=== PATIENT | male | born 1965 | race Caucasian/White ===

== ENCOUNTER 2024-12-13 04:59 | Observation (INO) ==
--- NOTE | 2024-11-17 12:14 | PAT Medication Instructions ---
Medication Instructions Date of Service November 17, 2024 Home Medications atorvastatin 20 mg tablet 20 mg PO QAM meloxicam 15 mg tablet 15 mg PO QAM ASK your surgeon for instructions meloxicam 15 mg tablet 15 mg PO QAM Take morning of surgery With a small sip of water, OTHERWISE NOTHING TO EAT OR DRINK AFTER MIDNIGHT: atorvastatin 20 mg tablet 20 mg PO QAM Other Notes If you have any questions please call us at [phone] or [phone] or [phone] or [phone]
--- NOTE | 2024-11-23 09:51 | Anesthesiology Consultation ---
Date of Service November 23, 2024 Assessment & Plan (1) Encounter for pre-operative examination: Plan Outpatient joint assessment: Patient is currently scheduled for inpatient pathway. If re-evaluated and patient/surgeon requests outpatient pathway, patient is acceptable candidate for outpatient joint program from anesthesia standpoint pending surgeon's office assessment of pt motivation/support/completion of same day joint program preop requirements. Chart Review Chart Review: Acceptable Risk for Surgery and Patient seen in Pre Admission Testing Teaching & Discussion Pre-Anesthesia Teaching/Discussion Notes: Instructed NPO after midnight before surgery, except medications with 15 cc of water. Medication instructions provided according to the PAT guidelines. History Surgery Operation Date: 12/13/24 07:00 Proposed Procedures p Right Total Hip Arthroplasty Ra - Jasiel Pelayo DO Height/Weight Height: 6 ft 1 in Weight: 106.4 kg Allergies Allergy/AdvReac Type Severity Reaction Status Date / Time No Known Allergies Allergy Verified 11/09/24 14:01 Medications Home Medications Medication Instructions Recorded Confirmed Last Taken atorvastatin 20 mg tablet 20 mg PO QAM 09/01/24 11/09/24 Unknown meloxicam 15 mg tablet 15 mg PO QAM 11/09/24 11/09/24 Unknown Past Medical History Medical History Hyperlipemia Patient denies h/o stroke, seizures, heart attack, heart failure, DM, HTN, blood clots/DVTs or blood transfusions. Exercise / Class Metabolic Activity II 4-5 Yardwork/Stairs/Walk up hill (denies chest discomfort or shortness of breath walking up one flight of stairs) Past Surgical History Surgical History History of total left hip replacement 2022 Hx of arthroscopy of left knee Hx of arthroscopy of right knee Hx of arthroscopy of shoulder rt/lt rotator cuff tear repair Hx of colonoscopy Past Anesthesia History No Hx of Anesthesia Complications and No Family Hx of Anesthesia Complications History of PONV No Hx of PONV and No Hx of Motion Sickness Social History Smoking Status: Never smoker Do You Dip or Chew Tobacco: Yes (occasionally) Hx Alcohol Use: Yes Alcohol type: beer, wine and hard liquor alcohol intake frequency: a few times a month Hx Substance Use: No substance use type: does not use Review of Systems Snoring, denies witnessed apneas. Patient denies chest pain, shortness of breath, dyspnea on exertion, reflux, fever, chills, cough, wheezing, or palpitations. Physical Exam Vital Signs Vitals BP 152/93 P 55 TEMP 97.9 SP02 94% on RA RESP 19 Physical Patient resting comfortably in chair in no acute distress, alert and oriented, responding appropriately throughout visit Full cervical extension range of motion without pain TMD < 3 finger breadths Mallampati Score 3 Dentition: several caps/crowns, implants and bridges, denies chipped or loose teeth Lungs: normal respiratory effort. Good air movement, clear throughout to auscultation, no adventitious breath sounds Cardiac: regular rate and rhythm, no murmurs noted Carotid arteries: negative bruit bilat Lab Results Anesthesia Preop Results Results Anesthesia Widget: WBC 6.38 K/ul (4.8-10.8) 11/23/24 Hgb 14.5 g/dl (14.0-18.0) 11/23/24 Hct 40.4 % (42.0-52.0) L 11/23/24 Plt 176 K/uL (130-400) 11/23/24 Na 138 mmol/L (136-145) 11/23/24 K 4.1 mmol/L (3.5-5.1) 11/23/24 Cl 107 mmol/L (98-107) 11/23/24 CO2 22 mmol/L (21-32) 11/23/24 BUN 20 mg/dl (6-23) 11/23/24 Creat 1.12 mg/dl (0.6-1.4) 11/23/24 Glucose Level 101 mg/dl (70-99(Fasting)) H 11/23/24 PT 10.7 Seconds (9.0-12.0) 11/23/24 PTT 27 Seconds (21-31) 11/23/24 INR 1.0 (0.9-1.1) 11/23/24 Blood Type O Positive 11/23/24 Antibody Screen NEGATIVE 11/23/24 Testing Electrocardiogram Date: 11/23/24 Sinus bradycardia, rate [address] abnormality Chest X-Ray Date: 11/23/24 No acute findings.
[2024-12-13] MEDS: GABAPENTIN 300 MG CAP PO SCH (05:42)
[2024-12-13] MEDS: LR 60ML/HR IV SCH (05:42)
[2024-12-13] MEDS: ACETAMINOPHEN 500 MG TAB PO SCH ×2 (05:42→14:45)
[2024-12-13] MEDS: FAMOTIDINE 20 MG TAB PO SCH (05:42)
[2024-12-13] MEDS: LR 500ML BOLUS, THEN 15ML/HR IV SCH (05:51)
[2024-12-13] MEDS: dexAMETHasone**PF** 10 MG/ML VIAL IV SCH (05:56)
[2024-12-13] MEDS ORDERED: BUPIVACAINE 0.5 % 5 MG/1 ML PF 10ML VIAL ONE (06:22)
[2024-12-13] MEDS ORDERED: ONDANSETRON INJ 2 MG/ML 2 ML VIAL ONE (06:28)
[2024-12-13] MEDS ORDERED: LIDOCAINE 2% 2 ML VIAL/AMP(20MG/ML) INFIL ONE (06:28)
[2024-12-13] MEDS ORDERED: fentaNYL citrate PF 100 MCG/2 ML VIAL ONE (06:28)
[2024-12-13] MEDS ORDERED: MIDAZOLAM HCL 1 MG/ML 2ML VIAL ONE ×2 (06:28→06:58)
[2024-12-13] MEDS ORDERED: GLYCOPYRROLATE 0.2 MG/ML VIAL ONE (06:28)
[2024-12-13] MEDS ORDERED: PROPOFOL IV EMULSION 10 MG/ML 20 ML VIAL IV ONE ×2 (06:28→06:31)
[2024-12-13] MEDS ORDERED: KETAMINE HCL 10MG/ML SYR ONE (06:28)
--- NOTE | 2024-12-13 06:34 | History & Physical Bridge Note ---
Date of Service December 13, 2024 History & Physical Bridge Note I have examined the patient, reviewed the History & Physical and in the interval since the performance of the History & Physical I have noted the following changes of clinical significance: no changes noted
[2024-12-13] MEDS: TRANEXAMIC ACID 1,000 MG **IV Pre-op IV SCH (06:46)
[2024-12-13] MEDS ORDERED: HYDROmorphone INJ 1 MG/ML SYRINGE IV PRN (06:52)
[2024-12-13] MEDS ORDERED: ePHEDrine sulfate 50 MG/ML AMP IV PRN (06:52)
[2024-12-13] MEDS ORDERED: ATROPINE SULFATE 0.1 MG/ML 10ML SYR IV PRN (06:52)
[2024-12-13] MEDS ORDERED: ONDANSETRON INJ 2 MG/ML 2 ML VIAL IV PRN ×2 (06:52→10:53)
[2024-12-13] MEDS: ceFAZolin 2000MG 2,000 MG/15 ML SYR IV SCH (07:00)
[2024-12-13] MEDS ORDERED: ePHEDrine sulfate 50 MG/5 ML SYR ONE (07:12)
[2024-12-13] MEDS: ORTHO JOINT ANESTHETIC ONE (07:26)
[2024-12-13] MEDS ORDERED: PHENYLEPHRINE 100MCG/ML 5ML SYR ONE (07:46)
[2024-12-13] MEDS: TRANEXAMIC ACID 1,000 MG **IV Intra-op IV SCH (08:05)
[2024-12-13] MEDS: ROPIV 0.5% 246mg, Ketorolac 30mg, EPINEPHrine 0.5mg in NSS INFIL SCH (08:25)
--- NOTE | 2024-12-13 08:35 | Fluoroscopy Report ---
FL hip RT 1V CLINICAL HISTORY: RIGHT ANTERIOR HIP COMPARISON STUDY: Right hip radiographs September 01, 2024. FLUOROSCOPY TIME: 10 seconds. Ka,r: 1.7587 mGy FLUOROSCOPIC IMAGES: 1 FINDINGS: Fluoroscopy was provided during anterior total right hip arthroplasty. Hardware is intact. There are no fractures. No unexpected radiopaque foreign bodies are present. There is an acetabular s crew. IMPRESSION: Fluoroscopy provided during anterior total right hip arthroplasty. ACT 112: Negative or not required by law. Electronically signed by: Alexx Wayne M.D. 12/13/2024 8:32 AM
--- NOTE | 2024-12-13 08:36 | Operative Report ---
PG Post Operative Report Pre & Post Diagnosis Operation Date: 12/13/24 07:00 Pre-Op Diagnosis: Osteoarthritis Hip Right Post-Op Diagnosis: Osteoarthritis Hip Right I identified the patient and participated in the time-out.: Yes Procedure Operation Date: 12/13/24 07:00 Actual Procedures p Right Anterior Total Hip Arthroplasty(Right) - Jasiel Pelayo DO Surgeon Jasiel Pelayo DO [employer] Manager Juan F Chung PA-C Estimated Blood Loss 250 Findings Consistent with Post-Op Diagnosis Specimens Right femoral head Description of Procedure Implants used I used a ZimmerBiomet total hip arthroplasty system with a size 4 high offset Avenir Complete stem, a 52 mm G7 cup with a 25mm screw, an E1 polyethylene liner, a 36 mm ceramic head with a 0 neck. Kahlil arrived at the hospital for the above procedure. He was seen in the preoperative holding area and the operative extremity was identified and signed. He was given a spinal anesthetic, a preoperative antibiotic, and TXA. He was then taken back to the operating room and laid on the table in the supine position. He was given basic sedation. The operative leg was secured to a Puristst leg positioner. The hip was then prepped and draped in sterile fashion. A timeout was done and the patient and the operative extremity was properly identified. An anterior approach was used. Dissection was taken down through the fascia and the tensor muscle belly was retracted laterally and the rectus was retracted medially. The circumflex vessels were identified and ligated. The capsule was then incised and tagged for later repair. The femoral neck was then cut and the femoral head was removed. The acetabulum was exposed. Time was spent doing a complete circumferential labral release. Sequential reaming of the acetabulum up to a size 51 reamer was done. Final reamings were done under fluoroscopy to ensure appropriate version. A Biomet 52 mm G7 cup was then impacted into place. A single 25 mm screw was placed. The E1 polyethylene liner was then snapped into place. Surrounding soft tissues were then injected with 100 cc of an orthopedic pain control cocktail. The proximal femur was then exposed. Sequential broaching up to a size 4 broach was done. Off that broach a size 36 head with a 0 neck was trialed. The hip was reduced and fluoroscopic images showed anatomic alignment of the implants in acceptable length. The broach was removed. The final size 4 high offset Avenir Complete stem was then impacted into place. A ceramic 36 mm head with a 0 neck was then impacted onto the stem and the hip was reduced. Final fluoroscopic images showed anatomic alignment of the hip. The capsule was then closed with #1 Vicryl suture. A dilute betadyne lavage was then done for 3 minutes. The joint was then irrigated with normal saline solution. The fascia was closed with #1 PDS suture. Skin was closed with 2-0 Vicryl, sneha, and a Silverlon dress ing. He was then transferred to a hospital bed and taken to the post anesthesia care unit in stable condition. He tolerated the procedure well. Juan F Chung PA-C, was present for the entire procedure. He was critical for patient positioning, prepping, draping, retraction exposure, wound closure and application of sterile dressing. I attest to the content of the Intraoperative Record and any orders documented therein. Any exceptions are noted below.
--- NOTE | 2024-12-13 09:16 | Anesthesiology Progress Note ---
Date of Service December 13, 2024 Anesthesia Post Procedure Vital Signs Vital Signs: Temp Pulse Pulse Resp BP Pulse Ox O2 Del Method 12/13/24 09:05 81 20 120/76 95 Nasal Cannula 12/13/24 08:55 77 13 139/84 94 Nasal Cannula 12/13/24 08:45 85 14 135/87 93 Oxymask 12/13/24 08:36 36.7 C 93 H 12 118/87 94 Oxymask 12/13/24 05:33 36.6 C 55 L 20 156/97 H 96 Room Air O2 Flow Rate 12/13/24 09:05 4 12/13/24 08:55 4 12/13/24 08:45 4 12/13/24 08:36 4 12/13/24 05:33 Pain Intensity Right Hip: Pain Intensity: 3 Transfer of Care Handoff Completed per policy Notes Mental Status: alert / awake / arousable Patient Amnestic to Procedure: Yes Nausea / Vomiting: adequately controlled Pain: adequately controlled Airway Patency, RR, SpO2: stable & adequate BP & HR: stable & adequate Hydration State: stable & adequate Neuraxial Anesthesia: was administered and sensory block is resolving Anesthetic Complications: no major complications apparent and Pt Satisfied with anesthetic care
--- NOTE | 2024-12-13 09:28 | XRay Report ---
XR hip 1V RT w pelvis CLINICAL HISTORY: IN PACU - Post Surgical COMPARISON: 09/01/2024 FINDINGS: AP pelvis and lateral lateral view of the right hip demonstrate a total hip arthroplasty h as been performed with satisfactory positioning and alignment of the prosthetic components. Postsurgi james changes are noted in the soft tissues. IMPRESSION: Satisfactory positioning and alignment of a right hip arthroplasty. ACT 112: Negative or not required by law. Electronically signed by: Fatemeh Trinidad M.D. 12/13/2024 9:27 AM
[2024-12-13] MEDS: fentaNYL citrate PF 100 MCG/2 ML VIAL IV PRN (09:48)
[2024-12-13] MEDS ORDERED: bisacodyL 10 MG SUPP PR PRN (10:53)
[2024-12-13] MEDS ORDERED: MAGNESIUM HYDROXIDE SUSP 30 ML UDC PO PRN (10:53)
[2024-12-13] MEDS ORDERED: HYDROmorphone INJ 0.5 MG/0.5 ML SYR IV PRN (10:53)
[2024-12-13] MEDS ORDERED: NALOXONE HCL 0.4 MG/1 ML VIAL/CARP IV PRN (10:53)
[2024-12-13] MEDS ORDERED: METOCLOPRAMIDE HCL INJ 5 MG/ML 2 ML VIAL IV PRN (10:53)
--- NOTE | 2024-12-13 11:41 | Anesthesia Procedure Note ---
Anesthesia Procedure Note Neuraxial Placement Note Date of procedure: 12/13/24 Consent: Risk / Benefits Reviewed With: PT / POA / Parent / Guardian, Accepts Plan, Informed Consent Obtained and All Questions Answered Monitors attached: Blood Pressure, CO2, EKG and Pulse Oximetry Oxygen delivery method: Mask Time out completed: Yes Prehydrate: Lactated ringers Position: Sitting Surgical Prep: Hand hygeine: Alcohol based hand rub Equipment/Supplies: Cap, Mask, Sterile gloves, Sterile drapes and Sterile procedures used Skin prep: Duraprep Site: Midline Local medication: 1% Lidocaine (ml) (3) Neuraxial placement technique: Epidural Needle: 24g x 3.5 inch Sprotte Ultrasound Guidance: Ultrasound used: No Anesthetic used: 0.5% Bupivicaine (ml) (3) Parasthesias: No CSF: Yes Blood: No Attempts: 1 Post-Procedure: Pt hemodynamically stable, Pt tolerates well and No complication
[2024-12-13] MEDS: MULTIVITAMIN TAB PO SCH (11:48)
[2024-12-13] MEDS: ASPIRIN 81 MG ECTAB PO SCH (11:48)
[2024-12-13] MEDS: ROSUVASTATIN CALCIUM 10 MG TAB PO SCH (11:48)
[2024-12-13] MEDS: KETOROLAC TROMETHAMINE 15 MG/ML VIAL IV SCH (11:49)
[2024-12-13] MEDS: DOCUSATE SODIUM 100 MG CAP PO SCH (11:50)
[2024-12-13] MEDS: oxyCODONE HCL IR 5 MG TAB (IMMEDIATE RELEASE) PO PRN (12:41)
[2024-12-13] MEDS: ceFAZolin 1000MG 1,000 MG/7.5 ML SYR IV SCH (14:45)
[2024-12-13] MEDS: SENNA 8.6 MG TAB PO SCH (20:01)
[2024-12-13 23:05] VITALS: O2SAT 95
[2024-12-14 03:42] VITALS: TEMP 97.7
[2024-12-14 07:24] VITALS: BP 129/73; PULSE 59; RESP 16
[2024-12-14] MEDS: dexAMETHasone 4 MG TAB PO SCH (08:09)
--- NOTE | 2024-12-14 09:28 | Orthopedic Progress Note ---
Date of Service December 14, 2024 Assessment & Plan (1) Status post right hip replacement: Assessment: Status post right anterior total hip arthroplasty. Plan: Overall, he is doing quite well today with good pain control right hip. He will work with physical therapy later this morning to work on ambulation and range of motion exercises. He is on aspirin for DVT prophylaxis. He will be wearing VITOR hoses for 2 weeks. His dressing should remain in place for 7 days. It may be open to air after 7 days if no drainage is present. He may be discharged home later this morning pending formal physical therapy evaluation recommendations. He will follow-up with orthopedics in 2 weeks for continued postoperative management or sooner if needed. He verbalized understanding agrees with this plan. Subjective . Kahlil was seen and evaluated this morning resting comfortably in no apparent distress. He notes he is doing very well with good pain control right hip. He has been up and ambulating with no issues whatsoever all morning this morning. He has yet to work with physical therapy this morning. He denies any concerns with surgical incision site. Denies any active bleeding, discharge, or signs of infection. He denies any other concerns today. Review of Systems All systems reviewed & are unremarkable except as noted in HPI & below. Physical Exam . On physical examination of the right hip, dressings are clean, dry, and intact with no signs of active bleeding, discharge, or signs of infection. His leg is out in full extension. Limited range of motion secondary to postoperative stiffness and soreness. Calf soft nontender to palpation. Negative Homans' sign. +2 DP and PT pulses. Less than 2-second capillary refill. Normal sensation. Neurovascular intact. Results & Data Results & Data Laboratory Results . Diagnostic Findings . Hip X-Ray 12/13/24 07:00 FL hip RT 1V CLINICAL HISTORY: RIGHT ANTERIOR HIP COMPARISON STUDY: Right hip radiographs September 01, 2024. FLUOROSCOPY TIME: 10 seconds. Ka,r: 1.7587 mGy FLUOROSCOPIC IMAGES: 1 FINDINGS: Fluoroscopy was provided during anterior total right hip arthroplasty. Hardware is intact. There are no fractures. No unexpected radiopaque foreign bodies are present. There is an acetabular screw. IMPRESSION: Fluoroscopy provided during anterior total right hip arthroplasty. ACT 112: Negative or not required by law. Electronically signed by: Alexx Wayne M.D. 12/13/2024 8:32 AM Hip/Pelvis X-Ray 12/13/24 08:43 XR hip 1V RT w pelvis CLINICAL HISTORY: IN PACU - Post Surgical COMPARISON: 09/01/2024 FINDINGS: AP pelvis and lateral lateral view of the right hip demonstrate a total hip arthroplasty has been performed with satisfactory positioning and alignment of the prosthetic components. Postsurgical changes are noted in the soft tissues. IMPRESSION: Satisfactory positioning and alignment of a right hip arthroplasty. ACT 112: Negative or not required by law. Electronically signed by: Fatemeh Trinidad M.D. 12/13/2024 9:27 AM PG Care Time/CCT Total # of Minutes Spent Total Time Spent with Patient: Total time spent is greater than 50% in coordination of care (as documented) at patient's floor/unit and/or counseling patient: Coding Level of Care Code 93380 Post Operative Follow-Up Diagnoses Status post right hip replacement Z96.641
--- NOTE | 2024-12-14 09:29 | Discharge Summary ---
Date of Service December 14, 2024 Principal Diagnosis Same as "Discharge Diagnosis" noted below under Discharge Instructions. Discharge Exam . On physical examination of the right hip, dressings are clean, dry, and intact with no signs of active bleeding, discharge, or signs of infection. His leg is out in full extension. Limited range of motion secondary to postoperative stiffness and soreness. Calf soft nontender to palpation. Negative Homans' sign. +2 DP and PT pulses. Less than 2-second capillary refill. Normal sensation. Neurovascular intact. Discharge Data Procedures Performed Operation Date: 12/13/24 07:00 Actual Procedures p Right Anterior Total Hip Arthroplasty(Right) - Jasiel Pelayo, Ordered Studies 12/13/24 07:00 FL hip RT 1V Routine Hospital Course (1) Status post right hip replacement: On December 13, 2024 Kahlil arrived at [facility] on underwent a right anterior total hip arthroplasty performed by Dr. Pelayo with no complications. He had a spinal anesthetic. Postoperatively, he was started on aspirin for DVT prophylaxis and transferred to the general orthopedic floor in stable condition. His hospital course was uneventful. On postoperative day #1, his vital signs are stable and his pain was well-controlled. He participated well with physical therapy working on ambulation and range of motion exercises. He was then discharged home in stable condition. He will follow-up with orthopedics in 2 weeks for continued postoperative management or sooner if needed. PG Care Time/CCT Total # of Minutes Spent Total Time Spent with Patient: Total time spent is greater than 50% in coordination of care (as documented) at patient's floor/unit and/or counseling patient: Discharge Plan Discharge Items Patient Disposition: Home - Home Health Services Reason For Visit: Osteoarthritis Hip Right Discharge Diagnosis: Same Activity: Per Instructions section Non-emergency contact: Surgeon Call non-emergency contact if: your temperature is above 101.5, your wound has increased redness, your wound has increased drainage and your wound pain has increased Follow-up/Referrals: Yanna Ly CRNP [Primary Care Provider] - Diet: Regular Addtl Attending Provider Instructions: Activity and Therapy Recommendations: * If you are using [facility] then therapy will be provided at your home until they feel you have accomplished all of your goals. * If you are using [facility] then Physical Therapy will be provided until they feel you are ready to start Outpatient Physical Therapy. * If you are not using home therapy then Outpatient Physical Therapy should start about 3-5 days from your day of surgery. Therapy will last about 6-10 weeks * You were shown a series of exercises in the hospital. Do these exercises three times each day including the exercises you were shown in physical therapy. * Get up and walk several times each day.~ For the first four weeks, try not to stand or walk for more than one hour at a time. If you do stand or walk for more than one hour, you will not hurt anything, but your leg will likely swell.~~ * As you feel comfortable, you may change from the walker or crutches to a cane and~then to independent walking. Medications: * Narcotic You will likely be sent home from the hospital with a prescription for the narcotic pain medication that worked best throughout your stay. * Cefadroxil -take the antibiotic twice a day for 10 days to help prevent inf ection. * Aspirin Most patients will be required to take Aspirin 81mg twice a day for 6 weeks after surgery. This is obtained [id number] and a prescription is not necessary. * Other medications may be prescribed for specific circumstances. If you have any questions, please call the office at . * Resume previous home medications unless otherwise instructed TEDs/Elastic Stockings: The white elastic stockings help limit swelling and prevent blood clots from forming in your legs. The more you wear them, the more they work. Wear them for six weeks. Dressing Care: Leave the Silverlon dressing in place for 7 days. After 7 days you may remove the dressing. If the incision is not draining then you may leave the sneha open to air. If there is a little bit of drainage or if the sneha are getting stuck on your clothing then cover the incision with a dry dressing. The sneha will be removed at your 2 week follow-up appointment. Showering: You may shower with the Silverlon dressing in place. Do not let the shower spray hit the dressing directly. Pat the Silverlon dressing dry. If the dressing becomes wet underneath, then simply remove the dressing. Keep the incision dry until you are 7 days out from the day of surgery. After 7 days you may remove the Silverlon dressing and shower with the sneha exposed. Let soapy water run over the sneha and pat them dry. Do not scrub or soak the incision. Diet: You may resume your previous diet. Things To Watch For: * Drainage from the incision site that occurs more than one week after your surgery. * Increased redness at the incision site. * Fever above 102 degrees Fahrenheit. * Unusual chest pain or shortness of breath. * Call [facility] at with any of the above problems Follow-Up Visit: Follow-up with Dr. Pelayo's office 2-3 weeks after your day of surgery. We will remove your sneha and answer any questions. If you have any additional questions or concerns, Dr Pelayo is usually in the office at the same time and will be available An appointment was probably scheduled when you signed-up for surgery in the office. If you have any questions call Office Instructions: More detailed instructions as well as Frequently Asked Questions were provided in a folder by our office when you signed-up for surgery. Please review these instructions when you get home. If you have any further questions or concerns, please feel free to call the office at [phone] Pending Studies at Discharge: No Stand-Alone Forms: My [facility] [employer], Smoking Cessation Medications and DC Order Prescriptions: New cefadroxil 500 mg capsule 500 mg PO BID 10 Days Qty: 20 0RF oxycodone 5 mg tablet 5 mg PO Q6H PRN (Reason: pain) Qty: 30 0RF aspirin 81 mg Tablet,Delayed Release (Dr/Ec) 81 mg PO BID 42 Days Qty: 0 0RF Continued (DME) Wheeled Walker Misc See Rx Instructions .MEDSUPPLY Qty: 1 0RF Rx Instructions: As directed albuterol sulfate 90 mcg/actuation HFA aerosol inhaler 1 inh inhalation QID PRN (Reason: resp) rosuvastatin 10 mg tablet 10 mg PO DAILY Qty: 90 1RF Held meloxicam 15 mg tablet 15 mg PO QAM PRN (Reason: Respiratory Distress) Hold Instructions: Resume on 01/25/25. Patient Comments: does not take regularly Admission Data Admit Date/Time: 12/13/24 08:43 Attending Provider: Jasiel Pelayo Admit Provider: Jasiel Pelayo Primary Care Provider: Yanna Ly
== END 2024-12-14 11:03 | disposition home health service (06) ==
LOC: 3E 04:59 → ASU 04:59
DX: Z79.899 Other long term (current) drug therapy; M16.11 Unilateral primary osteoarthritis, right hip; E78.5 Hyperlipidemia, unspecified